=== PATIENT | male | born 1985 | race Caucasian/White ===

== ENCOUNTER 2016-12-17 06:25 | Emergency (ER) | payer OTHER ==
[~2016-12-17 06:25] MED LIST: DEXI60CA2 PO
[2016-12-17] MEDS ORDERED: KETOROLAC 60 MG/2 ML VIAL (J1885) IM ONE (07:00)
[2016-12-17] MEDS ORDERED: IBUP80TA PO (08:05)
[2016-12-17] MEDS ORDERED: ROBA500T PO (08:05)
[2016-12-17 08:16] VITALS: BP 114/61
--- NOTE | 2016-12-18 09:12 | REP ---
Lumbar spine five views: There are no comparisons. Vertebral body heights, interspacing alignment are normal. The pedicles, facets and sacroiliac articulations are unremarkable. Impression: Negative lumbar spine. Signed by Calin Casey MD 12/17/2016 07:49 A
== END 2016-12-17 08:17 | disposition home or self-care (01) ==
LOC: M ED 06:25
DX: S39.012A Strain of muscle, fascia and tendon of lower back, initial encounter (principal); X50.9XXA Other and unspecified overexertion or strenuous movements or postures, initial encounter; Y92.89 Other specified places as the place of occurrence of the external cause; Y93.89 Activity, other specified; Y99.8 Other external cause status; M51.9 Unspecified thoracic, thoracolumbar and lumbosacral intervertebral disc disorder; Z79.899 Other long term (current) drug therapy
CPT/HCPCS: 72110; 96372; 99282; J1885